=== PATIENT | female | born 2000 | race Caucasian/White ===

== ENCOUNTER 2018-08-17 23:18 | Emergency (ER) | payer OTHER, MEDICAID, SELFPAY ==
[2018-08-17 23:31] VITALS: BP 114/75; PULSE 58; RESP 16; TEMP 37.9; O2SAT 96
[2018-08-17 23:55] VITALS: PULSE 129; RESP 16; TEMP 37.9; O2SAT 96; BMI 24.0
[2018-08-18] VITALS: BP 93/73; PULSE 128; RESP 17; O2SAT 98
[2018-08-18 00:01] LABS: Add Manual Diff / Slide Review NO; Basophils Absolute Auto 0 /uL (0-100); Basophils Percent Auto 0.4 % (0-2); Eosinophils Absolute Auto 0 /uL (0-450); Eosinophils Percent Auto 0.4 % (2-4); Hematocrit 43.9 % (36-46); Hemoglobin 14.6 g/dL (12.0-16.0); Lymphocytes Absolute Auto 1700 /uL (1100-4500); Lymphocytes Percent Auto 14.6 % (25-40); Mean Corpuscular HGB Conc 33.2 % (30-36); Mean Corpuscular Hemoglobin 29.4 PG (26-34); Mean Corpuscular Volume 88.6 fL (80-100); Monocytes Absolute Auto 1200 /uL (0-900); Monocytes Percent Auto 9.9 % (3-14); Neutrophils Absolute Auto 8900 /uL (1500-7000); Neutrophils Percent Auto 74.7 % (50-75); Platelet Count 259 X10^3/uL (150-400); Red Blood Cell Count 4.95 X10^6/uL (4.0-5.2); Red Cell Distribution Width 12.9 % (11.6-14.8); White Blood Cell Count 11.9 X10^3/uL (4.5-11.0)
[2018-08-18] MEDS: SODIUM CHLORIDE 0.9% 1,000 ML 1000 ML IV (00:05)
[2018-08-18] MEDS: ONDANSETRON 4 MG/2 ML INJ IV (00:05)
[2018-08-18] MEDS: KETOROLAC 60 MG/2 ML VIAL 30 MG IV (00:06)
[2018-08-18] MEDS: levoFLOXacin 750 MG/150 ML PIGGYBACK 100 MG IV (00:06)
[2018-08-18 00:09] LABS: Lactate (Lactic Acid) 1.1 mmol/L (0.7-2.1)
[2018-08-18 00:11] LABS: Alanine Aminotransferase 24 IU/L (9-52); Albumin 4.9 g/dL (3.5-5.0); Albumin Globulin Ratio 1.3 (1.0-2.8); Alkaline Phosphatase 78 U/L (38-126); Aspartate Aminotransferase 18 IU/L (14-36); BUN Creatinine Ratio 13.8 (6-22); Blood Urea Nitrogen 11 mg/dL (7-17); Calcium 9.6 mg/dL (8.4-10.2); Carbon Dioxide 25 mmol/L (22-32); Chloride 101 mmol/L (98-107); Estimated Glomerular Filt Rate > 60.0 mL/min (>60); Globulin 3.9 g/dL (1.7-4.1); Glucose 97 mg/dL (70-100); HEMOLYSIS < 15 (0-50); Sodium 141 mmol/L (137-145); Total Protein 8.8 g/dL (6.3-8.2)
[2018-08-18 00:27] LABS: Procalcitonin < 0.05 ng/mL (<0.5)
--- NOTE | 2018-08-18 00:48 | ED.FEMALEGU ---
HPI - Female Genitourinary General Chief complaint: Urogenital-Female Stated complaint: peeing blood side hurts Time Seen by Provider: 08/17/18 23:33 Source: patient and old records reviewed Mode of arrival: ambulatory Limitations: no limitations History of Present Illness HPI Narrative: The patient is a 17-year-old female presenting with bilateral flank pain ongoing for the last 4 days. She was diagnosed with pyelonephritis at [facility] on 08/14/2018. She had blood work done and was placed on Bactrim. According to records she did grow E coli resistant to Bactrim. There is a note is stating that the ache called her and called in Cipro for her. Patient states that she did not go sampler pickup the new medication. She feels like her pain is getting worse in her bilateral flanks. More in her left. She feels nauseous as. She states that she is overall not getting any better. She is noted to be quite tachycardic in the ED. She denies any painful or frequent urination complaining of mostly bilateral flank pain Female Urogenital Radiation: L Flank and R Flank Severity: severe Quality: Sharp Duration: constant Relieving factors: none Exacerbating factors: none Related Data Allergies Allergy/AdvReac Type Severity Reaction Status Date / Time No Known Drug Allergies Allergy Verified 08/18/18 00:00 Review of Systems Review of Systems ROS Unobtainable: All systems reviewed & are unremarkable except as noted in HPI and below Constitutional Denies chills, Denies fever(s), Denies lethargy and Denies weakness Cardiovascular Denies chest pain, Denies irregular heart rhythm, Denies lightheadedness, Denies palpitations, Denies dyspnea, Denies dyspnea on exertion and Denies orthopnea Respiratory Denies cough, Denies dyspnea, Denies dyspnea on exertion and Denies wheezing Gastrointestinal Gastrointestinal: Denies abdominal pain, Denies change in bowel habits, Denies diarrhea, Reports nausea and Denies vomiting Genitourinary Reports as per HPI Musculoskeletal Denies back pain, Denies muscle weakness, Denies numbness and Denies tingling Integumentary/Breasts Denies pruritus, Denies erythema, Denies rash and Denies wounds Neurologic Denies numbness, Denies tingling and Denies weakness Endocrine Denies palpitations Allergic/Immunologic Denies wheezing FOR[facility]LY [facility] Medical History Patient denies medical problems (Acute) Social History Smoking Status: Never smoker Social History Smoking Status: Never smoker Exam Initial Vital Signs Initial Vital Signs: Vital Signs Temperature 100.3 F H 08/17/18 23:31 Pulse Rate 58 L 08/17/18 23:31 Respiratory Rate 16 08/17/18 23:31 Blood Pressure 114/75 08/17/18 23:31 Pulse Oximetry 96 08/17/18 23:31 GENERAL: A young female crying appears in pain HEENT: Head atraumatic,EOMI, pupils reactive, CARDIOVASCULAR: Regular rate and rhythm without murmurs, rubs or gallops. RESPIRATORY: Breath sounds equal bilaterally, no wheezes rales or rhonchi. ABDOMEN: Soft, nontender. Normoactive bowel sounds all 4 quadrants. No guarding or rebound. : Bilateral CVA tenderness more on left than right EXTREMITIES: Normal range of motion, no clubbing or edema. Neurovascularly intact NEUROLOGICAL: Alert and oriented x4.Normal gait and speech. Cranial nerves II through XII grossly intact. SKIN: Warm, dry, no laceration, no petechiae, no rashes or lesions. Course Orders Ordered: ED Orders 08/17/18 23:45 Complete Blood Count AUTO DIFF Stat Comprehensive Metabolic Panel Stat Lactate (Lactic Acid) Stat Procalcitonin Stat Sodium Chloride (Normal Saline 0.9%) 1,000 mls @ 1,000 mls/hr IV CONT SIRENA Last Infusion: 08/18/18 01:29 Dose: 0 mls/hr Admin: 08/18/18 00:05 Dose: 1,000 mls/hr Discontinued Medications Acetaminophen (Tylenol) 975 mg PO NOW ONE Stop: 08/18/18 01:10 Last Admin: 08/18/18 01:29 Dose: 975 mg Levofloxacin (Levaquin) 750 mg in 150 mls @ 100 mls/hr IV NOW ONE Stop: 08/18/18 01:28 Last Infusion: 08/18/18 02:12 Dose: 0 mls/hr Admin: 08/18/18 00:06 Dose: 100 mls/hr Ketorolac Tromethamine (Toradol) 30 mg IV NOW ONE Stop: 08/17/18 23:44 Last Admin: 08/18/18 00:06 Dose: 30 mg Ondansetron HCl (Zofran) 4 mg IV NOW ONE Stop: 08/17/18 23:44 Last Admin: 08/18/18 00:05 Dose: 4 mg Vital Signs - 8 hr 08/17/18 23:31 08/17/18 23:55 08/18/18 00:00 Temperature 100.3 F H 100.3 F H Pulse Rate 58 L 129 H 128 H Respiratory Rate 16 16 17 Blood Pressure [Left Arm] 114/75 93/73 Pulse Oximetry 96 96 98 08/18/18 01:04 08/18/18 01:44 Temperature 98.8 F Pulse Rate 98 H Respiratory Rate 22 Blood Pressure [Left Arm] 109/57 L Pulse Oximetry 98 MDM - Female Genitourinary Medical Records Attestation: I reviewed the patient's medical records. Lab Data Attestation: I reviewed the patient's lab results. Result diagrams: 08/17/18 23:45 08/17/18 23:45 Lab Results 08/17/18 08/17/18 08/17/18 Range/Units 23:45 23:45 23:45 WBC 11.9 H (4.5-11.0) X10^3/uL RBC 4.95 (4.0-5.2) X10^6/uL Hgb 14.6 (12.0-16.0) g/dL Hct 43.9 (36-46) % MCV 88.6 (80-100) fL MCH 29.4 (26-34) PG MCHC 33.2 (30-36) % RDW 12.9 (11.6-14.8) % Plt Count 259 (150-400) X10^3/uL Neut % (Auto) 74.7 (50-75) % Lymph % (Auto) 14.6 L (25-40) % [place] % (Auto) 9.9 (3-14) % Eos % (Auto) 0.4 L (2-4) % Baso % (Auto) 0.4 (0-2) % Neut # (Auto) 8900 H (0788-5475) /uL Lymph # (Auto) 1700 (0522-8280) /uL [place] # (Auto) 1200 H (0-900) /uL Eos # (Auto) 0 (0-450) /uL Baso # (Auto) 0 (0-100) /uL Sodium 141 (137-145) mmol/L Potassium 4.0 (3.4-5.1) mmol/L Chloride 101 (98-107) mmol/L Carbon Dioxide 25 (22-32) mmol/L BUN 11 (7-17) mg/dL Creatinine 0.80 (0.52-1.04) mg/dL Estimated GFR > 60.0 (>60) mL/min BUN/Creatinine Ratio 13.8 (6-22) Glucose 97 (70-100) mg/dL Lactate (0.7-2.1) mmol/L Calcium 9.6 (8.4-10.2) mg/dL Total Bilirubin 1.0 (0.2-1.3) mg/dL AST 18 (14-36) IU/L ALT 24 (9-52) IU/L Alkaline Phosphatase 78 (38-126) U/L Total Protein 8.8 H (6.3-8.2) g/dL Albumin 4.9 (3.5-5.0) g/dL Globulin 3.9 (1.7-4.1) g/dL Albumin/Globulin Ratio 1.3 (1.0-2.8) Procalcitonin < 0.05 (<0.5) ng/mL 08/17/18 Range/Units 23:45 WBC (4.5-11.0) X10^3/uL RBC (4.0-5.2) X10^6/uL Hgb (12.0-16.0) g/dL Hct (36-46) % MCV (80-100) fL MCH (26-34) PG MCHC (30-36) % RDW (11.6-14.8) % Plt Count (150-400) X10^3/uL Neut % (Auto) (50-75) % Lymph % (Auto) (25-40) % [place] % (Auto) (3-14) % Eos % (Auto) (2-4) % Baso % (Auto) (0-2) % Neut # (Auto) (9011-2497) /uL Lymph # (Auto) (0442-8144) /uL [place] # (Auto) (0-900) /uL Eos # (Auto) (0-450) /uL Baso # (Auto) (0-100) /uL Sodium (137-145) mmol/L Potassium (3.4-5.1) mmol/L Chloride (98-107) mmol/L Carbon Dioxide (22-32) mmol/L BUN (7-17) mg/dL Creatinine (0.52-1.04) mg/dL Estimated GFR (>60) mL/min BUN/Creatinine Ratio (6-22) Glucose (70-100) mg/dL Lactate 1.1 (0.7-2.1) mmol/L Calcium (8.4-10.2) mg/dL Total Bilirubin (0.2-1.3) mg/dL AST (14-36) IU/L ALT (9-52) IU/L Alkaline Phosphatase (38-126) U/L Total Protein (6.3-8.2) g/dL Albumin (3.5-5.0) g/dL Globulin (1.7-4.1) g/dL Albumin/Globulin Ratio (1.0-2.8) Procalcitonin (<0.5) ng/mL MDM Narrative Medical decision making narrative: Heart rate improved with IV fluids. I have seen and reviewed sensitivities from [facility]. She was definitely called in [facility] to [facility] on August 16 but she did not pick it up. She is given 1 dose of Levaquin IV in the ED. Normal lactic acid, normal blood pressure and mild leukocytosis. At this time not septic. But does clearly have infection. Discharge Plan Departure Patient Disposition: Home Clinical Impression: Urinary tract infection Instructions: Kidney Infection Activity Restrictions/Additional Instructions: *You have been diagnosed with kidney infection *What to do: It is important 90 sampler pickup the right antibiotic. Continue with IV fluids, Motrin and Tylenol. Blood work is reassuring today. *Continue to take medications as directed Cipro 500 mg twice a day at [facility] in [place] on 08/16/18 by manuel *Follow up with your primary care provider in 2-3 days *Return to ER if you should have inability to keep antibiotics down, persistent fever, increasing pain or any new, worsening or concerning symptoms
--- NOTE | 2018-08-18 00:52 | ED_ITS ---
HPI - Female Genitourinary General Chief complaint: Urogenital-Female Stated complaint: peeing blood side hurts Time Seen by Provider: 08/17/18 23:33 Source: patient and old records reviewed Mode of arrival: ambulatory Limitations: no limitations History of Present Illness HPI Narrative: The patient is a 17-year-old female presenting with bilateral flank pain ongoing for the last 4 days. She was diagnosed with pyelonephritis at [facility] on 08/14/2018. She had blood work done and was placed on Bactrim. According to records she did grow E coli resistant to Bactrim. There is a note is stating that the ache called her and called in Cipro for her. 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 She feels like her pain is getting worse in her bilateral flanks. More in her left. She feels nauseous as. She states that she is overall not getting any better. She is noted to be quite tachycardic in the ED. She denies any painful or frequent urination complaining of mostly bilateral flank pain Female Urogenital Radiation: L Flank and R Flank Severity: severe Quality: Sharp Duration: constant Relieving factors: none Exacerbating factors: none Related Data Allergies Allergy/AdvReac Type Severity Reaction Status Date / Time No Known Drug Allergies Allergy Verified 08/18/18 00:00 Review of Systems Review of Systems ROS Unobtainable: All systems reviewed & are unremarkable except as noted in HPI and below Constitutional Denies chills, Denies fever(s), Denies lethargy and Denies weakness Cardiovascular Denies chest pain, Denies irregular heart rhythm, Denies lightheadedness, Denies palpitations, Denies dyspnea, Denies dyspnea on exertion and Denies orthopnea Respiratory Denies cough, Denies dyspnea, Denies dyspnea on exertion and Denies wheezing Gastrointestinal Gastrointestinal: Denies abdominal pain, Denies change in bowel habits, Denies diarrhea, Reports nausea and Denies vomiting Genitourinary Reports as per HPI Musculoskeletal Denies back pain, Denies muscle weakness, Denies numbness and Denies tingling Integumentary/Breasts Denies pruritus, Denies erythema, Denies rash and Denies wounds Neurologic Denies numbness, Denies tingling and Denies weakness Endocrine Denies palpitations Allergic/Immunologic Denies wheezing [facility] Medical History Patient denies medical problems (Acute) Social History Smoking Status: Never smoker Social History Smoking Status: Never smoker Exam Initial Vital Signs Initial Vital Signs: Vital Signs Temperature 100.3 F H 08/17/18 23:31 Pulse Rate 58 L 08/17/18 23:31 Respiratory Rate 16 08/17/18 23:31 Blood Pressure 114/75 08/17/18 23:31 Pulse Oximetry 96 08/17/18 23:31 GENERAL: A young female crying appears in pain HEENT: Head atraumatic,EOMI, pupils reactive, CARDIOVASCULAR: Regular rate and rhythm without murmurs, rubs or gallops. RESPIRATORY: Breath sounds equal bilaterally, no wheezes rales or rhonchi. ABDOMEN: Soft, nontender. Normoactive bowel sounds all 4 quadrants. No guarding or rebound. : Bilateral CVA tenderness more on left than right EXTREMITIES: Normal range of motion, no clubbing or edema. Neurovascularly intact NEUROLOGICAL: Alert and oriented x4.Normal gait and speech. Cranial nerves II through XII grossly intact. SKIN: Warm, dry, no laceration, no petechiae, no rashes or lesions. Course Orders Ordered: ED Orders 08/17/18 23:45 Complete Blood Count AUTO DIFF Stat Comprehensive Metabolic Panel Stat Lactate (Lactic Acid) Stat Procalcitonin Stat Sodium Chloride (Normal Saline 0.9%) 1,000 mls @ 1,000 mls/hr IV CONT SIRENA Last Infusion: 08/18/18 01:29 Dose: 0 mls/hr Admin: 08/18/18 00:05 Dose: 1,000 mls/hr Discontinued Medications Acetaminophen (Tylenol) 975 mg PO NOW ONE Stop: 08/18/18 01:10 Last Admin: 08/18/18 01:29 Dose: 975 mg Levofloxacin (Levaquin) 750 mg in 150 mls @ 100 mls/hr IV NOW ONE Stop: 08/18/18 01:28 Last Infusion: 08/18/18 02:12 Dose: 0 mls/hr Admin: 08/18/18 00:06 Dose: 100 mls/hr Ketorolac Tromethamine (Toradol) 30 mg IV NOW ONE Stop: 08/17/18 23:44 Last Admin: 08/18/18 00:06 Dose: 30 mg Ondansetron HCl (Zofran) 4 mg IV NOW ONE Stop: 08/17/18 23:44 Last Admin: 08/18/18 00:05 Dose: 4 mg Vital Signs - 8 hr 08/17/18 23:31 08/17/18 23:55 08/18/18 00:00 Temperature 100.3 F H 100.3 F H Pulse Rate 58 L 129 H 128 H Respiratory Rate 16 16 17 Blood Pressure [Left Arm] 114/75 93/73 Pulse Oximetry 96 96 98 08/18/18 01:04 08/18/18 01:44 Temperature 98.8 F Pulse Rate 98 H Respiratory Rate 22 Blood Pressure [Left Arm] 109/57 L Pulse Oximetry 98 MDM - Female Genitourinary Medical Records Attestation: I reviewed the patient's medical records. Lab Data Attestation: I reviewed the patient's lab results. Result diagrams: 08/17/18 23:45 08/17/18 23:45 Lab Results 08/17/18 08/17/18 08/17/18 Range/Units 23:45 23:45 23:45 WBC 11.9 H (4.5-11.0) X10^3/uL RBC 4.95 (4.0-5.2) X10^6/uL Hgb 14.6 (12.0-16.0) g/dL Hct 43.9 (36-46) % MCV 88.6 (80-100) fL MCH 29.4 (26-34) PG MCHC 33.2 (30-36) % RDW 12.9 (11.6-14.8) % Plt Count 259 (150-400) X10^3/uL Neut % (Auto) 74.7 (50-75) % Lymph % (Auto) 14.6 L (25-40) % [place] % (Auto) 9.9 (3-14) % Eos % (Auto) 0.4 L (2-4) % Baso % (Auto) 0.4 (0-2) % Neut # (Auto) 8900 H (0001-1730) /uL Lymph # (Auto) 1700 (6018-2894) /uL [place] # (Auto) 1200 H (0-900) /uL Eos # (Auto) 0 (0-450) /uL Baso # (Auto) 0 (0-100) /uL Sodium 141 (137-145) mmol/L Potassium 4.0 (3.4-5.1) mmol/L Chloride 101 (98-107) mmol/L Carbon Dioxide 25 (22-32) mmol/L BUN 11 (7-17) mg/dL Creatinine 0.80 (0.52-1.04) mg/dL Estimated GFR > 60.0 (>60) mL/min BUN/Creatinine Ratio 13.8 (6-22) Glucose 97 (70-100) mg/dL Lactate (0.7-2.1) mmol/L Calcium 9.6 (8.4-10.2) mg/dL Total Bilirubin 1.0 (0.2-1.3) mg/dL AST 18 (14-36) IU/L ALT 24 (9-52) IU/L Alkaline Phosphatase 78 (38-126) U/L Total Protein 8.8 H (6.3-8.2) g/dL Albumin 4.9 (3.5-5.0) g/dL Globulin 3.9 (1.7-4.1) g/dL Albumin/Globulin Ratio 1.3 (1.0-2.8) Procalcitonin < 0.05 (<0.5) ng/mL 08/17/18 Range/Units 23:45 WBC (4.5-11.0) X10^3/uL RBC (4.0-5.2) X10^6/uL Hgb (12.0-16.0) g/dL Hct (36-46) % MCV (80-100) fL MCH (26-34) PG MCHC (30-36) % RDW (11.6-14.8) % Plt Count (150-400) X10^3/uL Neut % (Auto) (50-75) % Lymph % (Auto) (25-40) % [place] % (Auto) (3-14) % Eos % (Auto) (2-4) % Baso % (Auto) (0-2) % Neut # (Auto) (3290-9399) /uL Lymph # (Auto) (9792-0324) /uL [place] # (Auto) (0-900) /uL Eos # (Auto) (0-450) /uL Baso # (Auto) (0-100) /uL Sodium (137-145) mmol/L Potassium (3.4-5.1) mmol/L Chloride (98-107) mmol/L Carbon Dioxide (22-32) mmol/L BUN (7-17) mg/dL Creatinine (0.52-1.04) mg/dL Estimated GFR (>60) mL/min BUN/Creatinine Ratio (6-22) Glucose (70-100) mg/dL Lactate 1.1 (0.7-2.1) mmol/L Calcium (8.4-10.2) mg/dL Total Bilirubin (0.2-1.3) mg/dL AST (14-36) IU/L ALT (9-52) IU/L Alkaline Phosphatase (38-126) U/L Total Protein (6.3-8.2) g/dL Albumin (3.5-5.0) g/dL Globulin (1.7-4.1) g/dL Albumin/Globulin Ratio (1.0-2.8) Procalcitonin (<0.5) ng/mL MDM Narrative Medical decision making narrative: Heart rate improved with IV fluids. I have seen and reviewed sensitivities from [facility]. She was definitely called in [facility] to [facility] on August 16 but she did not pick it up. She is given 1 dose of Levaquin IV in the ED. Normal lactic acid, normal blood pressure and mild leukocytosis. At this time not septic. But does clearly have infection. 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 Continue with IV fluids, Motrin and Tylenol. Blood work is reassuring today. *Continue to take medications as directed Cipro 500 mg twice a day at [facility] in [place] on by manuel *Follow up with your primary care provider in 2-3 days *Return to ER if you should have inability to keep antibiotics down, persistent fever, increasing pain or any new, worsening or concerning symptoms
[2018-08-18 01:04] VITALS: BP 109/57; PULSE 98; RESP 22; O2SAT 98
[2018-08-18] MEDS: ACETAMINOPHEN 325 MG TABLET 975 MG PO (01:29)
[2018-08-18 01:44] VITALS: TEMP 37.1
[2018-08-18] MEDS: ONDANSETRON 4 MG ODT PREPACK 1 BOTTLE MISC (02:32)
--- NOTE | 2018-08-18 02:37 | PC.NURSE ---
Pt assisted to BR but was unable to void. HR 104 when she returned to the room. Pt reports feeling much better, appears brighter, is no longer crying with the blanket over her head. Dr Muir notified of above, ok to discharge with Elsy hernandez.
[2018-08-18 02:38] VITALS: BP 113/68; PULSE 100; RESP 18; O2SAT 100
== END 2018-08-18 02:40 | disposition home or self-care (01) ==
PROVIDERS: Emergency Provider Emergency Medicine
DX: N39.0 Urinary tract infection, site not specified (principal)
CPT/HCPCS: 36415; 36591; 80053; 83605; 84145; 85025; 87040; 96365; 96366; 96375; 99283; 99284; J1885; J1956; J2405